=== PATIENT | male | born 1970 | race Caucasian/White ===

== ENCOUNTER 2021-10-14 15:43 | Outpatient (RCR) | payer OTHER, SELFPAY ==
--- NOTE | 2021-10-14 16:58 | PTOPEVAL ---
Thank you for referring Hitesh Taylor to [facility].? The patient is scheduled to be seen for therapy? ____x/week for ___ weeks. Please review, sign, date and return this plan of care EFRAÍN. I agree with and certify that the following plan of care is medically necessary. Referring Physician Date Admitting Provider: Attending Provider: Trent Carrasquillo, PA Referring Provider: *PT Outpatient Evaluation Start: 10/14/21 15:51 Freq: Status: Active Protocol: Document 10/14/21 16:00 [facility] (Rec: 10/14/21 16:56 [facility] [id number]) Therapy Assessment Status Assessment Status Assessment Status Evaluation Evaluation Information Problem Diagnosis cervicalgia, lumbago Onset 10/08/21 Additional Evaluation Detail ndi = 20% functionally declined oswestry = 30% functionally declined Subjective Information patient reports he hit his Query Text:As Reported By Patient/ head about 1 month ago on a Family low cabinet. he reports he was seeing stars and felt a pop in his neck. he reports since then he has pain along the L side of his neck and down the L side of the neck. he reports he has headaches due to this injury. he reports in addition to this he has pain in the lower back that he reports is chronic. he reports he has increased pain in the neck driving more than 20 minutes, sitting, and radiation into the shoulder blade. he reports he has increased pain with driving and activities more than 20 minutes. 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 he reports he is currently still working. he reports he had an xray of the cervical spine. no results in the computer system. he does report some aches through the L shoulder, but reports this is after work and after his neck/head have been hurting. he reports he headaches 2 times a day at [employer]. he reports he
--- NOTE | 2022-02-22 14:44 | PCPTNOTE ---
Mr. Taylor attended 1 treatment session on 10/14/21. He has failed to return to the clinic and will be discharged. Refer to the pt. initial evaluation for discharge status.
== END 2021-10-14 16:59 | disposition home or self-care (01) ==
LOC: CHSPT 15:43
PROVIDERS: Visit Provider Physician Assistant
DX: M54.2 Cervicalgia (principal); M54.50 Low back pain, unspecified
CPT/HCPCS: 97110; 97161

== ENCOUNTER 2024-01-12 15:05 | Emergency (ER) | payer OTHER, SELFPAY ==
--- NOTE | ~2024-01-12 | XR_ITS ---
EXAMINATION: XR hand LT min 3V DATE: 01/12/2024 15:47 INDICATION: Left hand pain. Injury. TECHNIQUE: 3 views of left hand were obtained. COMPARISON: None. 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 There is a plate and screw fixatio n of distal radius. There is mild osteoarthritis of first metacarpophalangeal joint, first carpometac arpal joint, triscaphe joint, and fourth and fifth proximal interphalangeal joints. IMPRESSION: 1. Mild polyarticular osteoarthritis. Reviewed, dictated and finalized at location E.
[2024-01-12 15:05] VITALS: BP 146/89; PULSE 95; RESP 18; TEMP 36.7; O2SAT 98
[2024-01-12] MEDS: TETANUS,DIPHTHERIA,AC PERTUSSIS ADULT 0.5 ML (ADACEL) IM (15:48)
[2024-01-12] MEDS: KETOROLAC (*BKC) 60 MG/2 ML VIAL IM (15:49)
[2024-01-12] MEDS: LIDOCAINE HCL 1% LOCAL INJ 10 ML VIAL INFILTRATE (16:04)
--- NOTE | 2024-01-12 16:22 | ED.WOUNDLAC ---
HPI - Wound/Laceration General Chief Complaint: Wound/Laceration Stated Complaint: finger lacerations Time Seen by Provider: 01/12/24 15:30 Source: patient and family Mode of arrival: ambulatory Limitations: no limitations History of Present Illness HPI narrative: this is a 53-year-old male that presents with a laceration to his 2nd and 3rd finger after he got it caught in a fan blade has pain in his left middle finger and lacerations to the palmar surface of his left Second and 3rd finger Onset (ago): hour(s) Extremity Location: Left: hand ( Second and 3rd finger laceration) Patient tetanus UTD: No Context: accidental Associated symptoms: pain Related Data Home Medications Medication Instructions Recorded Confirmed aspirin 81 mg tablet,delayed 81 mg PO DAILY 01/12/24 01/12/24 release Allergies Allergy/AdvReac Type Severity Reaction Status Date / Time azithromycin [From Zithromax] AdvReac Hives Verified 01/12/24 15:11 Review of Systems Review of Systems: All systems reviewed & are unremarkable except as noted in HPI and below PMFSH Past Medical History Medical History Patient denies medical problems Exam Const: General: healthy appearing Nutritional Appearance: well nourished Orientation/consciousness: patient oriented x3 Limitations: no limitations Resp: Effort & Inspection: normal respiratory effort Auscultation: clear to auscultation bilaterally Cardio: Rate: regular rate Rhythm: regular rhythm GI: GI Palp: Yes Soft to palpation Auscultation: normal bowel sounds Skin: Wounds: wounds noted Neuro: General: patient oriented x3, moves all extremities, no meningeal signs and no focal motor deficits Extrem: General: normal to inspection Course Course Emergency Course: patient received 60mg IM Toradol for pain relief after reassessment pain is improved, lidocaine was used to numb the index finger on the left hand for suture placement. Patient updated with his tetanus vaccine. Vital Signs Vital signs: Vital Signs Temperature 36.7 C 01/12/24 15:05 Pulse Rate 95 01/12/24 15:05 Respiratory Rate 18 01/12/24 15:05 Blood Pressure 146/89 H 01/12/24 15:05 Pulse Oximetry 98 01/12/24 15:05 Oxygen Delivery Room Air 01/12/24 15:05 Temperature 36.7 C 01/12/24 15:05 Pulse Rate 95 01/12/24 15:05 Respiratory Rate 18 01/12/24 15:05 Blood Pressure 146/89 H 01/12/24 15:05 Pulse Oximetry 98 01/12/24 15:05 Oxygen Delivery Room Air 01/12/24 15:05 Procedures Laceration Laceration 1: Date: 01/12/24 Site: hand Side (If applicable): left Size (cm): 2 Description: flap Depth: simple, single layer Local Anesthetic: lidocaine 1% Amount of anesthesia used (mL): 8 ====== Skin Level ====== Skin layer closed with: vicryl Size (cm): 4-0 Number of sutures: 7 ====== Subcutaneous Layer ====== ====== Muscle Layer ====== ====== Tendon Layer ====== Laceration 2: Date: 01/12/24 Time: 16:25 Site: hand Side (If applicable): left Description: flap ====== Skin Level ====== Skin layer closed with: dermabond ====== Subcutaneous Layer ====== ====== Muscle Layer ====== ====== Tendon Layer ====== Critical Care Time Critical Care Time Critical Care Time: No Discharge Plan Discharge Clinical Impression: Laceration Patient Disposition: Home, Self-Care Condition: Stable Instructions: Antibiotic Form, Laceration (ED) Additional Instructions: Advised suture removal in 1 week otherwise follow-up primary care physician for suture removal. Prescriptions: New naproxen 500 mg tablet 500 mg PO BID PRN (Reason: pain) Qty: 20 0RF No Action aspirin [Adult Aspirin EC Low Strength] 81 mg Tablet,Delayed Release (Dr/Ec) 81 mg PO DAILY
== END 2024-01-12 16:50 | disposition home or self-care (01) ==
PROVIDERS: Emergency Provider Emergency Medicine; PCP Internal Medicine
DX: S61.213A Laceration without foreign body of left middle finger without damage to nail, initial encounter (principal); S61.211A Laceration without foreign body of left index finger without damage to nail, initial encounter; W45.8XXA Other foreign body or object entering through skin, initial encounter; Z23 Encounter for immunization
CPT/HCPCS: 12001; 73130; 90471; 90715; 96372; 99283; J1885